=== PATIENT | female | born 1955 | race Caucasian/White ===

== ENCOUNTER → 2020-04-11 | Outpatient (CLI) | payer OTHER ==
[~2020-04-11] MED LIST: ALLERGY10 M1 PO; CALCIUM OYSTER500 MG PO; IBUPROFEN 200200 M1 PO; LORAZEPAM 0.50.5 MG PO; TOE FUNGUS MED PO; WOMEN'S 50+ DA1 EACH PO
== END ==
LOC: SJCVCIMAG 09:22
PROVIDERS: ATTEND Internal Medicine
DX: R00.0 Tachycardia, unspecified (principal); R06.09 Other forms of dyspnea; R00.2 Palpitations; J43.9 Emphysema, unspecified; I10 Essential (primary) hypertension; E78.5 Hyperlipidemia, unspecified; R55 Syncope and collapse; F17.200 Nicotine dependence, unspecified, uncomplicated; Z79.82 Long term (current) use of aspirin

== ENCOUNTER → 2020-04-14 | Outpatient (CLI) | payer OTHER | LOC: LAB 11:39 | PROVIDERS: ATTEND Internal Medicine | DX: Z01.812 Encounter for preprocedural laboratory examination (principal); Z20.828 Contact with and (suspected) exposure to other viral communicable diseases ==

== ENCOUNTER → 2020-04-14 | Outpatient (CLI) | payer OTHER | LOC: SJCVC 10:44 | PROVIDERS: ATTEND Internal Medicine | DX: R94.39 Abnormal result of other cardiovascular function study (principal); R07.2 Precordial pain; R06.02 Shortness of breath; E78.5 Hyperlipidemia, unspecified; J43.2 Centrilobular emphysema; F17.200 Nicotine dependence, unspecified, uncomplicated; F17.210 Nicotine dependence, cigarettes, uncomplicated; Z79.82 Long term (current) use of aspirin; Z79.899 Other long term (current) drug therapy ==

== ENCOUNTER → 2020-04-21 | Outpatient (CLI) | payer OTHER ==
[~2020-04-21] VITALS: Ht 162.6 cm; Wt 63.5 kg
[~2020-04-21] MED LIST changes: +LEXAPRO20 MG PO; +ROSUVASTATIN CA10 MG PO; +TOPROL XL25 MG PO
[2020-04-21 07:00] VITALS: BP 99/28
--- NOTE | 2020-04-21 08:52 | CATHLAB ---
[facility] [place] [address] INVASIVE PROCEDURE REPORT Name: AMBER STEWART Room #: REG [facility] [id number] Admission: 04/21/20 Attend Phys: Srinivas Ferrara MD, Discharge: Date of : 55 Report #: [id number] THIS REPORT FOR: cc: Clif Diehl James DO Lundgren, Craig H. MD [facility] ~ APPROVED REPORT Study performed: 04/21/2020 07:15:23 Patient Details Patient Status: Out-Patient Room #: The patient is a 65 year-old female Event Personnel Srinivas Ferrara Hadoop Java Developer, Jaqueline George RN RN, Hawa Diehl RN RN, Teressa Yip Monitor, Ad Cheng RTR Scrub Procedures Performed Art Access - R femoral artery* 43945 Initial Mod Sed Same Phys/QHP Gr5y [id number] Left Heart Cath w/or w/o Coronaries [id number] [facility] Hemostasis w/ Mynx Indication Chest pain Procedure Narrative The patient was brought electively to the Cardiac Catheterization Laboratory and was prepped and draped in a sterile manner. The Right Groin^ was infiltrated with 1% Lidocaine subcutaneous anesthesia. A PINNACLE 6FR Sheath #[id number] sheath was inserted into the RFA^. Coronary angiography was performed using coronary diagnostic catheters. The right coronary system was accessed and visualized with a JR 4 catheter. The left coronary system was accessed and visualized with a JL 4 catheter. The left ventricle was accessed and visualized with a Pigtail catheter. Left ventricular/Aortic Valve gradient assessed via catheter pullback. Left ventriculogram was performed in [place] projection. Closure device was deployed with a 6 Fr Mynx. The patient tolerated the procedure well and there were no complications associated with the procedure. There was no hematoma. Intraoperative Conscious Sedation Sedation start time: 07:56 Case end Time: [facility] [address] [place] [address] INVASIVE PROCEDURE REPORT Name: AMBER STEWART Room #: [facility] [id number] Admission: 04/21/20 Attend Phys: Srinivas Ferrara, Discharge: Date of : 55 Report #: [id number] 08:24 Fentanyl 25 mcg Versed 0.5 mg Fluoro Time: 2.50 minutes Dose: DAP 4032.00 cGycm2 594 mGy Contrast Type and Amount: Omnipaque 130 ml Coronary Angiography The patient's coronary anatomy is co- dominant. Diagnostic Cath Left Main Short, normal cloacal left main. LAD Minimal proximal LAD plaquing, otherwise normal Diagonal 1 Large single diagonal branch, normal Circumflex Separate ostium for the circumflex off of the aorta. Normal circumflex OM1 Normal OM1 L PDA Normal posterior descending Right Coronary Normal, codominant right coronary R PDA Normal posterior descending RPLV Normal posterior lateral branch Left Ventriculography The left ventricle is normal in size with normal contractility. The left ventricular ejection fraction is estimated to be 60-65%. Left ventricular wall motion abnormalities are not present. There is no mitral insufficiency. Hemodynamics The aortic pressure is 110/44 mmHg with a mean of 61 mmHg. The left ventricular pressure is 103/6 mmHg with a mean of mmHg. The left ventricular end diastolic pressure is 21 mmHg. Conclusion 1. Normal global and regional left ventricular systolic function. EF 65% 2. Normal, cloacal left main 3. Normal coronary vasculature. Codominant circulation <ELECTRONICALLY SIGNED> By: Srinivas Ferrara MD, FACC 04/21/2051 0 Srinivas Ferrara MD, FACC /INF
== END | disposition home or self-care (01) ==
LOC: CATH 06:29
PROVIDERS: ATTEND Internal Medicine
DX: R07.9 Chest pain, unspecified (principal); J44.9 Chronic obstructive pulmonary disease, unspecified; F17.210 Nicotine dependence, cigarettes, uncomplicated; Z98.890 Other specified postprocedural states; Z79.899 Other long term (current) drug therapy; Z82.49 Family history of ischemic heart disease and other diseases of the circulatory system